=== PATIENT | male | born 1945 | race Caucasian/White ===

== ENCOUNTER → 2017-12-01 09:45 | Outpatient (CLI) | payer OTHER ==
[~2017-12-01] VITALS: Ht 152.4 cm; Wt 9.1 kg
[~2017-12-01 09:45] MED LIST: LOTREL 5-10 MG1 CAP; MEDROL4 MG PO; MOTRIN800 MG PO; NORVASC2.5 M1; ORPH100T PO
== END | disposition home or self-care (01) ==
LOC: PPHC 09:45
DX: M79.672 Pain in left foot (principal); G89.11 Acute pain due to trauma

== ENCOUNTER 2020-06-26 12:49 | Emergency (ER) | payer OTHER ==
[~2020-06-26] VITALS: Ht 175.3 cm; Wt 90.7 kg
[2020-06-26] MEDS ORDERED: TOPROL XL25 M1 PO (13:00)
[2020-06-26] MEDS ORDERED: ELIQUIS2.5 MG PO (13:00)
== END 2020-06-26 15:40 | disposition home or self-care (01) ==
LOC: ER 12:49
DX: K29.60 Other gastritis without bleeding (principal); M54.2 Cervicalgia; T40.2X5A Adverse effect of other opioids, initial encounter; Y92.89 Other specified places as the place of occurrence of the external cause